=== PATIENT | female | born 1995 | race Caucasian/White ===

== ENCOUNTER 2021-08-30 04:56 | Inpatient (IN) ==
[2021-08-30] MEDS ORDERED: *HR* FentaNYL (PF) 100 MCG/2 ML VIAL IVP PRN (05:00)
[2021-08-30] MEDS ORDERED: Lidocaine 1% 20 ML MDV ID PRN (05:00)
[2021-08-30] MEDS ORDERED: *HR* Nalbuphine 10 MG/ML AMPUL IV PRN (05:00)
[2021-08-30] MEDS ORDERED: Penicillin G Potassium 5,000,000 UNIT in 0.9 % Sodium Chloride Mini Bag 100 ML IVPB ONE (05:00)
[2021-08-30] MEDS ORDERED: Azithromycin 500 MG in 0.9 % Sodium Chloride 250 ML IVPB PRN (05:00)
[2021-08-30] MEDS ORDERED: Famotidine 20 MG/2 ML VIAL IVP PRN (05:00)
[2021-08-30] MEDS ORDERED: Metoclopramide 10 MG/2 ML VIAL IVP PRN (05:00)
[2021-08-30] MEDS ORDERED: Ringers Solution, Lactated 1,000 ML IVC SCH (05:00)
[2021-08-30] MEDS ORDERED: Naloxone 0.4 MG/ML INJ IVP PRN (05:00)
[2021-08-30] MEDS ORDERED: Ondansetron 4 MG/2 ML VIAL IVP PRN (05:00)
[2021-08-30 05:51] LABS: Basophils # 0.1 K/mcL (0.0-0.2); Basophils % 0.7 %; Eosinophils # 0.1 K/mcL (0.0-0.6); Eosinophils % 0.8 %; Hematocrit 36.3 % (35.3-44.9); Hemoglobin 12.2 g/dL (11.5-15.4); Immature Granulocytes % 1.6 % (0-4); Lymphocytes # 1.4 K/mcL (0.6-4.6); Lymphocytes % 13.8 %; Mean Corpuscular HGB Conc 33.6 g/dL (31.6-35.5); Mean Corpuscular Volume 89.2 fL (83.0-100.0); Mean Platelet Volume 12.6 fL (9.4-12.4); Monocytes # 0.7 K/mcL (0.0-1.3); Monocytes % 7.2 %; Neutrophils # 7.5 K/mcL (1.6-8.9); Platelet Count 167 K/mcL (140-400); Red Blood Count 4.07 M/mcL (3.82-4.97); Red Cell Distribution Width 12.2 % (11.5-14.5); Segmented Neutrophils % 75.9 %; White Blood Count 9.9 K/mcL (4.3-11.1)
[2021-08-30 06:02] LABS: Creatinine,Urine 60 mg/dL; Protein/Creatinine Ratio,Urine 0.27 mg/mg (0.00-0.20)
[2021-08-30 06:23] LABS: Influenza A PCR Negative (Negative); Influenza B PCR Negative (Negative); Resp. Syncytial Virus PCR Negative (Negative); SARS-CoV-2 by PCR (In House) Negative (Negative)
[2021-08-30 06:36] LABS: Alanine Aminotransferase 11 Units/L (7-52); Aspartate Amino Transferase 14 Units/L (13-39); BUN/Creatinine Ratio 14 (6-26); Blood Urea Nitrogen 8 mg/dL (6-20); Glucose 90 mg/dL (70-105); Lactate Dehydrogenase 143 Units/L (140-271); Uric Acid 3.6 mg/dL (2.3-7.6); eGFR For African Americans > 60 (> 60); eGFR For Non-African Americans > 60 (> 60)
[2021-08-30 08:43] LABS: Amphetamine Screen,Urine Negative ng/mL (Cutoff=1000); Barbiturate Screen,Urine Negative ng/mL (Cutoff=200); Benzodiazepines Screen,Urine Negative ng/mL (Cutoff=200); Cannabinoid Screen,Urine Negative ng/mL (Cutoff = 50); Cocaine Screen,Urine Negative ng/mL (Cutoff= 300); Opiate Screen,Urine Negative ng/mL (Cutoff=300); Phencyclidine Screen,Urine Negative ng/mL (Cutoff=25)
[2021-08-30] MEDS: Penicillin G Potassium 2,500,000 UNIT/105 ML MLS IVPB SCH ×2 (10:45→14:30)
[2021-08-30] MEDS ORDERED: Ropivacaine/PF 0.2% 20 ML VIAL EP ONE (13:19)
[2021-08-30] MEDS ORDERED: EPHEDrine 50 MG/ML VIAL IVP PRN (13:19)
[2021-08-30] MEDS ORDERED: *HR* FentaNYL (PF) 100 MCG/2 ML VIAL EP ONE (13:19)
[2021-08-30] MEDS ORDERED: Epidural Premix (fent/bupiv) 110 ML EP ONE (13:26)
[2021-08-30] MEDS ORDERED: Epidural Premix (fent/bupiv) 110 ML EP SCH (13:30)
[2021-08-30] MEDS ORDERED: Oxytocin 20 units/ LR 1000 mL 20 UNIT/1,000 ML BAG IVC ONE (16:00)
[2021-08-30] MEDS ORDERED: Lanolin 7 G OINT...G. TP PRN (17:27)
[2021-08-30] MEDS ORDERED: Benzocaine/Menthol 56 GM AEROSOL SPRAY TP PRN (17:27)
[2021-08-30] MEDS ORDERED: Ondansetron ODT 4 MG TAB.RAPDIS SL PRN (17:27)
[2021-08-30] MEDS ORDERED: Oxytocin 20 units/ LR 1000 mL 20 UNIT/1,000 ML BAG IVC SCH (17:30)
[2021-08-30] MEDS: Ibuprofen 600 MG TABLET PO SCH (20:24)
[2021-08-30] MEDS: Acetaminophen 325 MG TABLET PO SCH (20:24)
[2021-08-31] MEDS: Acetaminophen 325 MG TABLET PO SCH ×3 (03:53→15:51)
[2021-08-31] MEDS: Ibuprofen 600 MG TABLET PO SCH ×3 (03:53→15:51)
[2021-08-31 04:00] VITALS: O2SAT 98
[2021-08-31 04:52] LABS: Basophils # 0.1 K/mcL (0.0-0.2); Basophils % 0.5 %; Eosinophils % 0.2 %; Hematocrit 32.5 % (35.3-44.9); Immature Granulocytes % 0.9 % (0-4); Lymphocytes # 1.8 K/mcL (0.6-4.6); Lymphocytes % 13.2 %; Mean Corpuscular HGB Conc 33.8 g/dL (31.6-35.5); Mean Corpuscular Hemoglobin 30.4 pg (28.0-33.3); Mean Corpuscular Volume 89.8 fL (83.0-100.0); Mean Platelet Volume 11.9 fL (9.4-12.4); Monocytes # 1.4 K/mcL (0.0-1.3); Monocytes % 10.3 %; Neutrophils # 10.4 K/mcL (1.6-8.9); Platelet Count 156 K/mcL (140-400); Red Blood Count 3.62 M/mcL (3.82-4.97); Red Cell Distribution Width 12.3 % (11.5-14.5); Segmented Neutrophils % 74.9 %; White Blood Count 13.8 K/mcL (4.3-11.1)
[2021-08-31] MEDS ORDERED: Prenatal Vit/FA 1 EACH TABLET PO SCH (09:00)
[2021-08-31 15:22] VITALS: BP 120/81; PULSE 82; TEMP 98.2
== END 2021-08-31 19:00 | disposition home or self-care (01) | DRG 807 ==
LOC: 1NENULAB → 1NENUOBS 20:18
PROVIDERS: ADMIT Obstetrics & Gynecology; ATTEND Obstetrics & Gynecology